=== PATIENT | female | born 1995 | race Caucasian/White ===

== ENCOUNTER 2017-09-21 17:53 | Emergency (ER) | payer SELFPAY ==
[2017-09-21 18:14] VITALS: TEMP 98.5; O2SAT 98
--- NOTE | 2017-09-21 18:58 | ED.PDOC ---
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 14 WKS . NO CARE YET. DENIES VAGINAL BLEEDING. Quality: cramping Onset Location: suprapubic Radiation: none Activites at Onset: none Prior abdominal problems: none Sexual intercourse history: less than 2 months ago Improving Factors: nothing Worsening Factors: nothing Associated Symptoms: lower back pain Allergies/Adverse Reactions: Allergies NO KNOWN ALLERGY Allergy (Verified 09/21/17 18:14) Home Medications: Ambulatory Orders Vit W/ Ferrous Fumara [] 1 tab PO DAILY 09/21/17 Review of Systems - Review of Systems Constitutional: States: no symptoms reported EENTM: States: no symptoms reported Respiratory: States: no symptoms reported Cardiology: States: no symptoms reported Gastrointestinal/Abdominal: Denies: abdominal pain, constipation, diarrhea, nausea, vomiting Genitourinary: Denies: discharge, dysuria, frequency, hematuria Musculoskeletal: States: back pain Skin: States: no symptoms reported Neurological: States: no symptoms reported Endocrine: States: no symptoms reported Hematologic/Lymphatic: States: no symptoms reported All other Systems: Reviewed and Negative Past Medical History (General) - Patient Medical History Hx Congestive Heart Failure: No Hx Diabetes: No Hx Renal Disease: No Surgical History: appendectomy, other - Vaccination History Hx Influenza Vaccination: No Hx Pneumococcal Vaccination: No - Social History Hx Tobacco Use: Yes Cigarettes Packs Per Day: 1 Hx Alcohol Use: No Hx Substance Use: No Hx Substance Use Treatment: No Hx Depression: No - Activities of Daily Living Hospice Agency (if applicable):: None - Female History Patient is a Female of Child Bearing Age (10 -59 yrs old): Yes Hx Last Menstrual Period: 08/13/14 Patient : Yes Expected Date of Delivery:: 05/22/15 - Triage Comment ED Triage Comment: gestational age estimated by significant other Family Medical History - Family History Mother Name: aydin Doe Living Status: Still Living Hx Family Asthma: Yes - fam relatives Hx Family Congestive Heart Failure: Yes Hx Family Hypertension: Yes Hx Family Stroke: Yes Hx Cardiac Disease: Yes Hx Family Diabetes: Yes Hx Family Cancer: Yes Father Family History: Unknown Physical Exam - Physical Exam General Appearance: Alert, No apparent distress Eyes, Ears, Nose, Throat Exam: PERRL/EOMI, normal ENT inspection Neck: non-tender, full range of motion Cardiovascular/Respiratory: regular rate, rhythm, no M/R/G Gastrointestinal/Abdominal: normal bowel sounds, soft, no organomegaly, no pulsatile mass, other - FHT'S 152, NL. UTERUS NON TENDER. NO G/R. Back Exam: normal inspection, no CVA tenderness, no vertebral tenderness Extremity: normal range of motion, normal inspection Neurologic: no motor/sensory deficits, alert Skin Exam: normal color, warm/dry Lymphatic: no adenopathy Progress - Results/Orders Results/Orders: UA NEG. POS HCG. FHT 152. NO VAG BLEED OR CONCERING S/SX. NL ROUND LIGAMENT PAIN OF . Departure - Departure Clinical Impression: Intrauterine , Low back pain during in first trimester Disposition: Discharge to Home or Self Care Condition: Good Departure Forms: ED Discharge - Pt. Copy, Patient Portal Self Enrollment Instructions: Support Garment May Reduce Back Pain Discomfort During Diet: resume usual diet Activity: increase activity as tolerated Home Medications: Ambulatory Orders Vit W/ Ferrous Fumara [] 1 tab PO DAILY 09/21/17 Additional Instructions: Please establish care with obstetric doctor. Tylenol is safe for pains of .
[2017-09-21 19:34] VITALS: BP 122/68
== END 2017-09-21 19:33 | disposition home or self-care (01) ==
LOC: ER 17:53
DX: O26.892 Other specified pregnancy related conditions, second trimester (principal); M54.5 Low back pain; O99.332 Smoking (tobacco) complicating pregnancy, second trimester; O09.32 Supervision of pregnancy with insufficient antenatal care, second trimester; F17.210 Nicotine dependence, cigarettes, uncomplicated; Z3A.14 14 weeks gestation of pregnancy

== ENCOUNTER 2018-05-22 18:00 | Emergency (ER) | payer SELFPAY ==
[2018-05-22] MEDS ORDERED: SODIUM CHLORIDE 0.9% 1000ML 1,000 ML IVS PRN (18:06)
--- NOTE | 2018-05-22 18:39 | ED.PDOC ---
History of Present Illness - General Chief Complaint: Drug or Alcohol Abuse Stated Complaint: Took a large dose of Tylenol Time Seen by Provider: 05/22/18 18:19 Source: patient Exam Limitations: no limitations - History of Present Illness Initial Comments: Makayla Torres 22 y/o female with history of depression for the last 3 years stated that she took Tylenol 500 mg about 10 -11 tablets today stating got depressed since no immediate family here but has live in boyfriend for 3 years and 2 children.She called up her mom telling her that she took those pills and after wards ambulance came to their house and brought her to hospital.Had been having suicidal thought and history of depression for 3 years taking anti depressant pills.Poison control notified. Timing/Duration: just prior to arrival Severity: moderate Episode Description: see hpi Associated Symptoms: ingestion, suicidal ideation Allergies/Adverse Reactions: Allergies NO KNOWN ALLERGY Allergy (Verified 05/22/18 18:31) Home Medications: Ambulatory Orders Sertraline HCl 100 mg PO DAILY 05/22/18 Review of Systems - Review of Systems Constitutional: States: no symptoms reported EENTM: States: no symptoms reported Respiratory: States: no symptoms reported Cardiology: States: no symptoms reported Gastrointestinal/Abdominal: States: no symptoms reported Genitourinary: States: no symptoms reported Musculoskeletal: States: no symptoms reported Skin: States: no symptoms reported Neurological: States: see HPI, emotional problems Past Medical History (General) - Patient Medical History Hx Stroke: No Hx Congestive Heart Failure: No Hx Diabetes: No Hx Renal Disease: No Hx Other PMH: Yes - depression - Vaccination History Hx Influenza Vaccination: No Hx Pneumococcal Vaccination: No - Social History Hx Tobacco Use: Yes Hx Alcohol Use: No Hx Substance Use: No Hx Substance Use Treatment: No Hx Depression: No - Female History Hx Last Menstrual Period: 08/13/14 Patient : Yes Expected Date of Delivery:: 05/22/15 Family Medical History - Family History Mother Name: aydin Doe Living Status: Still Living Hx Family Asthma: Yes - fam relatives Hx Family Congestive Heart Failure: Yes Hx Family Hypertension: Yes Hx Family Stroke: Yes Hx Cardiac Disease: Yes Hx Family Diabetes: Yes Hx Family Cancer: Yes Hx Family;Other: depression -mom Father Family History: Unknown Physical Exam - Physical Exam General Appearance: Alert, Comfortable, No apparent distress Eyes, Ears, Nose, Throat Exam: PERRL/EOMI, normal ENT inspection Neck: non-tender, full range of motion, supple Respiratory: lungs clear, normal breath sounds, no respiratory distress Cardiovascular/Chest: normal peripheral pulses, regular rate, rhythm, no murmur Peripheral Pulses: radial,right: 2+, radial,left: 2+ Gastrointestinal/Abdominal: normal bowel sounds, non tender, soft, no organomegaly Extremities Exam: non-tender, normal range of motion, no edema Neurological: alert, calm, oriented x 3, depressed affect Appearance: appropriate appearance, appropriate insight, neat, no memory impairment Behavior/Eye Contact/Speech: cooperative, good eye contact, normal speech Thoughts/Hallucinations: normal thought pattern, no apparent hallucination Skin Exam: normal color, warm/dry Progress - Progress Progress: 05/22/18 18:42 05/22/18 18:06 Telemetry ONCE ACETAMINOPHEN Stat CARDIAC ENZYME GROUP Stat COMPLETE METABOLIC PROFILE Stat SALICYLATE Stat URINE DRUG SCREEN, 7 ASSAY Stat Sodium Chloride 0.9% 1000ML [Ns 1000 ml] 1,000 ml IVS .QD HCG,SERUM Stat URINALYSIS Stat 05/22/18 18:15 EKG STAT Laboratory Results - last 24 hr 05/22/18 05/22/18 05/22/18 18:06 18:06 18:06 WBC 8.9 RBC 4.75 Hgb 12.6 Hct 39.2 MCV 82.5 MCH 26.5 L MCHC 32.2 L RDW 18.5 H Plt Count 153 MPV 11.9 H Absolute Neuts (auto) 6.60 Absolute Lymphs (auto) 1.30 Absolute Monos (auto) 0.90 H Absolute Eos (auto) 0.10 Absolute Basos (auto) 0.10 Neutrophils % 73.8 Lymphocytes % 14.8 L Monocytes % 9.5 H Eosinophils % 1.2 Basophils % 0.7 PT 10.3 INR 1.03 PTT (SP) 25.1 Sodium 140 Potassium 3.9 Chloride 105 Carbon Dioxide 22 Anion Gap 16.9 BUN 10 Creatinine 0.63 BUN/Creatinine Ratio 15.9 Random Glucose 114 H Serum Osmolality 279.3 Calcium 9.8 Total Bilirubin 0.4 AST 19 ALT 13 Alkaline Phosphatase 90 Creatine Kinase 102 Troponin I < 0.02 Serum Total Protein 8.3 H Albumin 4.7 Globulin 3.6 H Albumin/Globulin Ratio 1.3 Salicylates Acetaminophen 67.4 H Ethyl Alcohol 05/22/18 18:06 WBC RBC Hgb Hct MCV MCH MCHC RDW Plt Count MPV Absolute Neuts (auto) Absolute Lymphs (auto) Absolute Monos (auto) Absolute Eos (auto) Absolute Basos (auto) Neutrophils % Lymphocytes % Monocytes % Eosinophils % Basophils % PT INR PTT (SP) Sodium Potassium Chloride Carbon Dioxide Anion Gap BUN Creatinine BUN/Creatinine Ratio Random Glucose Serum Osmolality Calcium Total Bilirubin AST ALT Alkaline Phosphatase Creatine Kinase Troponin I Serum Total Protein Albumin Globulin Albumin/Globulin Ratio Salicylates Acetaminophen Ethyl Alcohol < 5.40 05/23/18 00:14 Vital Signs - 8 hr 05/22/18 05/22/18 05/22/18 18:00 18:37 20:00 Temperature 98.5 F Pulse Rate [ 84 110 H 73 Apical] Respiratory 18 18 16 Rate Blood Pressure 121/77 138/85 124/91 [Left Arm] O2 Sat by Pulse 99 97 97 Oximetry 05/22/18 21:00 Temperature Pulse Rate [ 60 Apical] Respiratory 16 Rate Blood Pressure 121/80 [Left Arm] O2 Sat by Pulse 96 Oximetry 05/23/18 00:14 Patient evalauted by [facility] stating feeling better she will go home with reliable family friend also stated she will depart for [facility] with her 3 children tomorrow. - Results/Orders Results/Orders: 05/22/18 18:06 Telemetry ONCE Sodium Chloride 0.9% 1000ML [Ns 1000 ml] 1,000 ml IVS .QD 05/22/18 18:15 EKG STAT 05/22/18 20:52 Referral:Mental Health ONCE Laboratory Results - last 24 hr 05/22/18 05/22/18 05/22/18 18:06 18:06 18:06 WBC 8.9 RBC 4.75 Hgb 12.6 Hct 39.2 MCV 82.5 MCH 26.5 L MCHC 32.2 L RDW 18.5 H Plt Count 153 MPV 11.9 H Absolute Neuts (auto) 6.60 Absolute Lymphs (auto) 1.30 Absolute Monos (auto) 0.90 H Absolute Eos (auto) 0.10 Absolute Basos (auto) 0.10 Neutrophils % 73.8 Lymphocytes % 14.8 L Monocytes % 9.5 H Eosinophils % 1.2 Basophils % 0.7 PT 10.3 INR 1.03 PTT (SP) 25.1 Sodium 140 Potassium 3.9 Chloride 105 Carbon Dioxide 22 Anion Gap 16.9 BUN 10 Creatinine 0.63 BUN/Creatinine Ratio 15.9 Random Glucose 114 H Serum Osmolality 279.3 Calcium 9.8 Total Bilirubin 0.4 AST 19 ALT 13 Alkaline Phosphatase 90 Creatine Kinase 102 CK-MB (CK-2) 0.8 CK-MB (CK-2) % Not Reportable Troponin I < 0.02 Serum Total Protein 8.3 H Albumin 4.7 Globulin 3.6 H Albumin/Globulin Ratio 1.3 Serum HCG, Qual Urine Color Urine Appearance Urine pH Ur Specific [place] Urine Protein Urine Glucose (UA) Urine Ketones Urine Blood Urine Nitrite Urine Bilirubin Urine Urobilinogen Ur Leukocyte Esterase Urine RBC Urine WBC Ur Epithelial Cells Urine Bacteria Salicylates Urine Opiates Screen Acetaminophen 67.4 H Urine Barbiturates Ur Phencyclidine Scrn U Amphetamin/Meth Scrn U Benzodiazepines Scrn U Cocaine Metab Screen U Cannabinoids Screen Ethyl Alcohol 05/22/18 05/22/18 05/22/18 18:06 18:06 18:06 WBC RBC Hgb Hct MCV MCH MCHC RDW Plt Count MPV Absolute Neuts (auto) Absolute Lymphs (auto) Absolute Monos (auto) Absolute Eos (auto) Absolute Basos (auto) Neutrophils % Lymphocytes % Monocytes % Eosinophils % Basophils % PT INR PTT (SP) Sodium Potassium Chloride Carbon Dioxide Anion Gap BUN Creatinine BUN/Creatinine Ratio Random Glucose Serum Osmolality Calcium Total Bilirubin AST ALT Alkaline Phosphatase Creatine Kinase CK-MB (CK-2) CK-MB (CK-2) % Troponin I Serum Total Protein Albumin Globulin Albumin/Globulin Ratio Serum HCG, Qual Negative Urine Color Urine Appearance Urine pH Ur Specific [place] Urine Protein Urine Glucose (UA) Urine Ketones Urine Blood Urine Nitrite Urine Bilirubin Urine Urobilinogen Ur Leukocyte Esterase Urine RBC Urine WBC Ur Epithelial Cells Urine Bacteria Salicylates Urine Opiates Screen Negative Acetaminophen Urine Barbiturates Negative Ur Phencyclidine Scrn Negative U Amphetamin/Meth Scrn Negative U Benzodiazepines Scrn Negative U Cocaine Metab Screen Negative U Cannabinoids Screen Negative Ethyl Alcohol < 5.40 05/22/18 05/22/18 20:52 21:56 WBC RBC Hgb Hct MCV MCH MCHC RDW Plt Count MPV Absolute Neuts (auto) Absolute Lymphs (auto) Absolute Monos (auto) Absolute Eos (auto) Absolute Basos (auto) Neutrophils % Lymphocytes % Monocytes % Eosinophils % Basophils % PT INR PTT (SP) Sodium Potassium Chloride Carbon Dioxide Anion Gap BUN Creatinine BUN/Creatinine Ratio Random Glucose Serum Osmolality Calcium Total Bilirubin AST ALT Alkaline Phosphatase Creatine Kinase CK-MB (CK-2) CK-MB (CK-2) % Troponin I Serum Total Protein Albumin Globulin Albumin/Globulin Ratio Serum HCG, Qual Urine Color Yellow Urine Appearance Sl cloudy Urine pH 6.0 Ur Specific [place] 1.015 Urine Protein Negative Urine Glucose (UA) Negative Urine Ketones Negative Urine Blood Negative Urine Nitrite Negative Urine Bilirubin Negative Urine Urobilinogen 0.2 Ur Leukocyte Esterase Trace H Urine RBC 0-1 Urine WBC 0-1 Ur Epithelial Cells 3-5 Urine Bacteria Rare Salicylates Urine Opiates Screen Acetaminophen 45.0 H Urine Barbiturates Ur Phencyclidine Scrn U Amphetamin/Meth Scrn U Benzodiazepines Scrn U Cocaine Metab Screen U Cannabinoids Screen Ethyl Alcohol Acetominophen level on downward trend non toxic level as per acetomiphen poisoning normogram - EKG/XRAY/CT EKG: Sinus, no ST T wave changes Comments: HR-83 Departure - Departure Clinical Impression: Suicidal overdose Qualifiers: Encounter type: initial encounter Qualified Code(s): T50.902A - Poisoning by unspecified drugs, medicaments and biological substances, intentional self-harm , initial encounter Depression Qualifiers: Depression Type: unspecified Qualified Code(s): F32.9 - Major depressive disorder, single episode, unspecified Acetaminophen overdose Qualifiers: Encounter type: initial encounter Injury intent: intentional self-harm Qualified Code(s): T39.1X2A - Poisoning by 4-Aminophenol derivatives, intentional self-harm, initial encounter Time of Disposition: 00:37 Disposition: Discharge to Home or Self Care Condition: Fair Departure Forms: ED Discharge - Pt. Copy, Patient Portal Self Enrollment Instructions: Depression, Depression, Adult (DC), Suicide Prevention Home Medications: Ambulatory Orders Sertraline HCl 100 mg PO DAILY 05/22/18 Additional Instructions: Return to Emergency room as needed
[2018-05-22] MEDS ORDERED: SODIUM CHLORIDE 0.9% 1000ML 1,000 ML IVS ONE (18:42)
[2018-05-23 01:17] VITALS: BP 125/75; TEMP 97; O2SAT 98
== END 2018-05-23 01:20 | disposition home or self-care (01) ==
LOC: ER 18:00
DX: T39.1X2A Poisoning by 4-Aminophenol derivatives, intentional self-harm, initial encounter (principal); F32.9 Major depressive disorder, single episode, unspecified; Z79.899 Other long term (current) drug therapy; Z87.891 Personal history of nicotine dependence
CPT/HCPCS: 80053; 80307; 80320; 80329; 81001; 82550; 82553; 84484; 84703; 85025; 85610; 85730; 93005; J7030